=== PATIENT | male | born 1965 | race Caucasian/White ===

== ENCOUNTER 2024-01-21 21:47 | Emergency (ER) | payer MEDICAID ==
[~2024-01-21] VITALS: Ht 175.3 cm; Wt 85.0 kg
[2024-01-21 22:03] VITALS: O2SAT 100
[2024-01-21] MEDS ORDERED: ENAL-77 MT (22:25)
[2024-01-21 22:42] LABS: BASOPHILS % 0.7 % (0.0-2.0); EOSINOPHILS % 2.6 % (0.0-5.0); HEMATOCRIT. 43.4 % (42.0-52.0); HEMOGLOBIN. 14.7 g/dL (14.0-18.0); LYMPHOCYTES % 24.6 % (20.0-50.0); MEAN CORPUSCULAR HEMOGLOBIN 30.1 pg (28.0-32.0); MEAN CORPUSCULAR HGB CONC 33.9 g/dL (31.0-37.0); MEAN CORPUSCULAR VOLUME 88.8 fL (80.0-94.0); MEAN PLATELET VOLUME 9.4 fl (7.4-10.4); MONOCYTES % 6.7 % (2.0-8.0); NEUTROPHILS % 65.4 % (40.0-76.0); PLATELET 181 x1000/uL (130-400); RED BLOOD CELL COUNT 4.89 mill/uL (4.7-6.1); RED CELL DISTRIBUTION WIDTH 14.6 % (11.6-14.6); WHITE BLOOD COUNT 10.2 x1000/uL (4.5-11.0)
[2024-01-21 22:46] LABS: CHLORIDE 106 mEq/L (98-107); POTASSIUM 3.5 mEq/L (3.5-5.1); SODIUM 141 mEq/L (136-145)
[2024-01-21 22:47] LABS: CARBON DIOXIDE 26 mEq/L (21-32)
[2024-01-21 22:48] LABS: CALCIUM 9.4 mg/dL (8.7-10.4)
[2024-01-21 22:50] VITALS: BP 139/76; PULSE 71; RESP 16; TEMP 36.61404; O2SAT 99
[2024-01-21 22:52] LABS: CREATININE 1.2 mg/dL (0.6-1.3); GLUCOSE 131 mg/dL (70-105); UREA NITROGEN BLOOD 15 mg/dL (9-23)
== END 2024-01-21 22:50 | disposition home or self-care (01) ==
LOC: ER 21:47
DX: R04.0 Epistaxis (principal); Z76.0 Encounter for issue of repeat prescription; I10 Essential (primary) hypertension; Z79.899 Other long term (current) drug therapy
CPT/HCPCS: 36415; 80048; 85025; 99283